=== PATIENT | male | born 1945 | race Caucasian/White ===

== ENCOUNTER → 2020-12-10 09:53 | Outpatient (BNVA) | payer OTHER, SELFPAY | PROVIDERS: PCP Emergency Medicine Emergency Medical Services; Referring Provider Emergency Medicine Emergency Medical Services; Visit Provider Urology | DX: N52.9 Male erectile dysfunction, unspecified (principal); R97.20 Elevated prostate specific antigen [PSA]; N20.1 Calculus of ureter; R39.9 Unspecified symptoms and signs involving the genitourinary system; Z12.5 Encounter for screening for malignant neoplasm of prostate; Z87.442 Personal history of urinary calculi | CPT/HCPCS: 81003; G0103 ==

== ENCOUNTER 2021-01-19 13:32 | Emergency (ER) | payer OTHER, MEDICARE, SELFPAY ==
[2021-01-19 13:40] VITALS: BP 150/85; PULSE 78; RESP 16; TEMP 36.4; O2SAT 96; BMI 26.6
--- NOTE | 2021-01-19 13:47 | ECG_ITS ---
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 Measurements Intervals [place] Rate: 78 P: 36 MS: 171 QRS: -6 QRSD: 90 T: 13 QT: 369 QTc: 422 Interpretive Statements SINUS RHYTHM NONSPECIFIC T-WAVE ABNORMALITY No previous ECG available for comparison Electronically Signed On 01-21-2021 19:17:21 CDT by Yolande Zarate M.D. [email or web address]
--- NOTE | 2021-01-19 13:47 | XRR_ITS ---
PROCEDURE INFORMATION: Exam: XR Chest Exam date and time: 01/19/2021 1:47 PM Age: 75 years old Clinical indication: Cough and dyspnea. TECHNIQUE: Imaging protocol: XR of the chest. Views: 1 view. COMPARISON: No relevant prior studies available. FINDINGS: Lungs: Low lung volumes. There are small nodular densities at the lung bases. No pulmonary consolidation. Pleural spaces: No pleural effusion.; No pneumothorax. Heart/Mediastinum: The cardiac silhouette is unremarkable. No gross evidence of pneumomediastinum. Bones/joints: No gross fracture. XR/XR chest 1V portable [id number] IMPRESSION: 1. Small nodular densities at the lung bases. Recommend CT chest to better characterize. 2. Low lung volumes.
--- NOTE | 2021-01-19 14:21 | ED_ITS ---
Documented by User: Lester Kay DO 01/21/21 06:19 HPI - Weakness General: Chief complaint: Weakness Stated complaint: GENERALIZED WEAKNESS/ UNCONTROLLED SHAKING Time Seen by Provider: 01/19/21 13:34 History of Present Illness: HPI Narrative: 75-year-old male presents emergency room with complaint of uncontrollable shaking of his arms and legs as well as feeling weak. Patient states he started taking a new medication about a month ago although he cannot identify what it is. Since then he been shaking he quit the medicine but still has the shaking. He is previously had a stroke. He is not otherwise have any focal neurologic deficits. States shaking is been intensifying recently but when I first came to see him it resolved while I was examining him began having shaking in his arms again. He is otherwise awake a lert and oriented. MD Complaint: generalized weakness Onset (ago): day(s) Duration: intermittent Location: generalized Migration: none Severity: mild Relieving factors: none Exacerbating factors: none Associated symptoms: Denies chest pain, chills, confusion, melena, decreased appetite, diaphoresis, dysuria, easy bruising, fever(s), headache(s), myalgias, nausea, rash, short of breath, syncope or vomiting Review of Systems Const: Denies: fever(s), chills or diaphoresis ENMT: Denies: throat pain, ear or mastoid pain, nasal discharge or nasal congestion Card: Denies: chest pain or syncope Resp: Denies: dyspnea, productive cough or non-productive cough GI: Denies: nausea, vomiting or melena : Denies: dysuria Skin/Breast: Denies: rash or pruritus Neuro: Denies: headache(s) or confusion Adam/Lymph: Denies: easy bruising PFS ED PFSH: Medical History Benign neoplasm of cerebral meninges Calculus of kidney Elevated prostate specific antigen (PSA) Erectile dysfunction Post traumatic stress disorder (PTSD) Pure hypercholesterolemia Unspecified osteoarthritis, unspecified site Vascular dementia without behavioral disturbance Family History (Updated 12/10/20 @ 10:21 by Vania Kruse LPN) Father , AT AGE 54 CAD (coronary artery disease) Cancer Mother , IN HER 80'S Stroke Social History Smoking and tobacco status: former smoker Alcohol intake: current Marital status: Current occupational status: retired History of recent travel: No Physical Exam Const: COMMON NORMALS: no acute distress GENERAL APPEARANCE: cooperative and comfortable ORIENTATION/CONSCIOUSNESS: Yes awake, Yes oriented to person, Yes oriented to place and Yes oriented to time HENMT: COMMON NORMALS: normocephalic, atraumatic, hearing grossly normal bilaterally, external ears normal, EAC's normal, TM's normal bilaterally, Normal nasal mucous membranes and turbinates present, moist oral mucous membranes and oropharynx normal HEAD & SCALP: normocephalic and atraumatic NOSE: Normal nasal mucous membranes and turbinates present EXTERNAL EAR: Yes external ears normal EXTERNAL AUDITORY CANAL: EAC's normal TYMPANIC MEMBRANE: TM's normal bilaterally Eye: COMMON NORMALS: Equal, round and reactive pupils present, EOMs intact bilaterally, conjunctivae normal and no scleral icterus CONJUNCTIVA: Yes conjunctivae normal PUPIL: Yes Equal, round and reactive pupils present Neck/C-Spine: COMMON NORMALS: full ROM, no lymphadenopathy, supple and no JVD Resp: COMMON NORMALS: normal respiratory effort, No retractions, No use of accessory muscles and clear to auscultation bilaterally AUSCULTATION: clear to auscultation bilaterally Cardio: COMMON NORMALS: no JVD, regular rate, regular rhythm and No murmurs present (Cardio) RATE: regular rate RHYTHM: regular rhythm GI: COMMON NORMALS: Soft to palpation and No hepatosplenomegaly present AUSCULTATION: Yes normoactive bowel sounds PALPATION: Yes Soft to palpation, No Tenderness to palpation present (GI), No Guarding due to palpation present (GI) and Yes No hepatosplenomegaly present Extremity: COMMON NORMALS: normal to inspection, capillary refill normal, no clubbing, cyanosis or edema, no calf tenderness and no pedal edema Neuro: SENSORIUM/ORIENTATION: Yes oriented to person, Yes oriented to place and Yes oriented to time Skin: COMMON NORMALS: no rashes or lesions noted GENERAL SKIN EXAM: no rashes or lesions noted Course Vital Signs: Vital signs: Vital Signs Temperature 97.5 F L 01/19/21 13:40 Pulse Rate 79 01/19/21 20:55 Respiratory Rate 15 01/19/21 20:55 Blood Pressure 145/90 01/19/21 20:55 Pulse Oximetry 96 01/19/21 20:55 MDM - Weakness MDM Narrative: Medical decision making narrative: Care turned over to at change of see his note for final diagnosis and disposition. Lab Data: Labs: Lab Results 01/19/21 01/19/21 01/19/21 Range/Units 14:10 14:40 14:40 WBC 8.8 (4.0-10.0) 10^3/ uL RBC 4.76 (4.1-5.3) 10^6/u L Hgb 13.8 (11.7-16.6) g/dL Hct 41.1 L (42.0-52.0) % MCV 86.3 (80-94) fl MCH 29.0 (28.0-34.0) pg MCHC 33.6 (30.0-36.0) g/dL RDW 14.5 (12.1-15.1) % Plt Count 335 (130-400) 10^3/c mm MPV 10.4 (7.4-10.4) fL Neut % (Auto) 60.5 % Lymph % (Auto) 27.9 % [place] % (Auto) 9.6 % Eos % (Auto) 1.4 % Baso % (Auto) 0.5 % Neut # (Auto) 5.35 (1.8-7.7) 10^3/u L Lymph # (Auto) 2.5 (0.8-4.8) 10^3/u L [place] # (Auto) 0.9 (0.2-0.9) 10^3/u L Eos # (Auto) 0.1 (0.0-0.8) 10^3/u L Baso # (Auto) 0.0 (0.0-0.1) 10^3/u L Nucleated RBC % (a uto) 0 % Nucleated RBCs # 0.0 /100WBC Sodium 143 (136-145) mmol/L Potassium 4.0 (3.5-5.1) mmol/L Chloride 105 (98-107) mmol/L Carbon Dioxide 25 (22-29) mmol/L Anion Gap 17.0 (5-19) BUN 13 (8-23) mg/dL Creatinine 1.1 (0.7-1.2) mg/dL GFR Calculation Not Reportable Glucose 88 (65-115) mg/dL Calculated Osmolal ity 296 H (285-295) mOsm/k g Calcium 8.7 (8.5-10.5) mg/dL Total Bilirubin 0.5 (0.15-1.2) mg/dL AST 23 (0-40) U/L ALT 32 (0-41) U/L Alkaline Phosphata se 108 (40-130) IU/L Creatine Kinase 124 (39-308) U/L C-Reactive Protein 3.9 (0.0-4.9) mg/L Total Protein 6.8 (6.6-8.7) g/dL Albumin 4.2 (3.5-5.2) g/dL Globulin 2.6 (1.3-4.6) g/dL Urine Color Yellow (Yellow) Urine Appearance Clear (CLEAR) Urine pH 6.5 (5-7) Ur Specific Gravit y 1.010 (1.005-1.030) Urine Protein Neg (Negative) Urine Glucose (UA) Norm (Normal) Urine Ketones Negative (Negative) Urine Blood 2+ H (Negative) Urine Nitrate Negative (Negative) Urine Bilirubin Neg (Negative) Urine Urobilinogen Norm (Negative) mg/dL Ur Leukocyte Rupal ase Negative (Negative) Urine RBC 5-10 H (0-2) /hpf Urine WBC Rare (0-5) /hpf Ur Squamous Epith Cells Rare (0-5) /hpf Amorphous Sediment Not Reportable Urine Bacteria Trace (NONE) /hpf Urine Mucus Trace /hpf Discharge Plan Discharge Patient Disposition: Home Clinical Impression: Tremor, Abnormal CT of the head, Abnormal head MRI, Hematuria Condition: Stable Prescriptions: No Action amlodipine 10 mg tablet 10 mg PO DAILY RF: 0 polyvinyl alcohol [Artificial Tears (polyvin alc)] 1.4 % drops 1 drp ophthalmic (eye) TID PRN (Reason: Dry Eyes) RF: 0 aspirin 81 mg tablet,delayed release (DR/EC) 81 mg PO DAILY RF: 0 bupropion HCl 300 mg tablet extended release 24 hr 300 mg PO QAM RF: 0 donepezil 10 mg tablet 10 mg PO DAILY RF: 0 metoprolol succinate 25 mg tablet extended release 24 hr 12.5 mg PO DAILY RF: 0 oxybutynin chloride 5 mg tablet 5 mg PO TID PRN (Reason: Pain) RF: 0 pravastatin 40 mg tablet 40 mg PO DAILY RF: 0 sildenafil 100 mg tablet 100 mg PO DAILY PRN (Reason: sexual activity) Qty: 20 RF: 12 tamsulosin 0.4 mg capsule 0.4 mg PO DAILY RF: 0 Prozac 20 mg Capsule 20 mg PO DAILY MDD SEE PHARMACY COMMENTS RF: 0 Discharge Orders: Discharge ED (Routine); Ordered 01/19/21 Ordered By: Azeem Robledo Referrals: Bam Pepe, DO [Primary Care Provider] - Discharge Diet: Usual diet Discharge Activity: Resume usual activity Patient Instructions: Hematuria - Male, Opioid Safety Activity Restrictions/Additional Instructions: Thank you for visiting the emergency department. You were seen and evaluated for abnormal muscle movements. The exact cause of this is somewhat unclear th ough may be related to your prior medication. We recommend outpatient follow-up with neurology. Additionally you were evaluated for abnormal head CT finding, per radiology recommendations they recommend a repeat MRI in 3 to 6 months to evaluate for stability of suspected meningioma. Please return to the emergency department for anything that you are concerned about and feel needs emergency department evaluation. Sign Out Sign Out Data: Patient Sign Out occurred on 01/19/21 at 19:04. Patient's care was discussed, and care was transferred from to Azeem Robledo MD. Coding Level of Care Code ED Center Human Resources Manager for Bashir Hwang NIH stroke score NIHSS Level Of Consciousness - 1a: 0 Level Of Consciousness Questions - 1b: Both Correct Level Of Consciousness Commands - 1c: Both Correct Best Gaze - 2: Normal Visual [place] - 3: No Visual Loss Facial Palsy - 4: Normal Motor Arm Right - 5: No Drift Motor Arm Left - 5: No Drift Motor Leg Right - 6: No Drift Motor Leg Left - 6: No Drift Limb Ataxia - 7: Absent Sensory - 8: Normal Best Language - 9: No Aphasia Dysarthia - 10: Normal Extinction And Inattention - 11: 0 Score Total Score: 0 Documented by User: Azeem Robledo MD 01/20/21 19:59 HPI - Weakness General: Chief complaint: Weakness Stated complaint: GENERALIZED WEAKNESS/ UNCONTROLLED SHAKING Time Seen by Provider: 01/19/21 13:34 PFSH ED PFSH: Medical History Benign neoplasm of cerebral meninges Calculus of kidney Elevated prostate specific antigen (PSA) Erectile dysfunction Post traumatic stress disorder (PTSD) Pure hypercholesterolemia Unspecified osteoarthritis, unspecified site Vascular dementia without behavioral disturbance Family History (Updated 12/10/20 @ 10:21 by Vania Kruse LPN) Father , AT AGE 54 CAD (coronary artery disease) Cancer Mother , IN HER 80'S Stroke Social History Smoking and tobacco status: former smoker Alcohol intake: current Marital status: Current occupational status: retired History of recent travel: No Course Vital Signs: Vital signs: Vital Signs Temperature 97.5 F L 01/19/21 13:40 Pulse Rate 79 01/19/21 20:55 Respiratory Rate 15 01/19/21 20:55 Blood Pressure 145/90 01/19/21 20:55 Pulse Oximetry 96 01/19/21 20:55 MDM - Weakness MDM Narrative: Medical decision making narrative: Patient care handoff received from the ED physician Dr. Kay pending completion of labs and obtaining outside records. Based on CT imaging patient requires MRI. MRI was performed without apparent complication and no evidence of acute hemorrhage was noted. The nonspecific finding was discussed with the patient and patient was offered lumbar puncture which he declined at this time after discussion of risks and benefits. Plan to have patient follow-up as outpatient. This was discussed with the patient and he was comfortable and agreeable with plan. Return precautions francia ivmodesta. All questions answered. Azeem Robledo MD Emergency Medicine Lab Data: Labs: Lab Results 01/19/21 01/19/21 01/19/21 Range/Units 14:10 14:40 14:40 WBC 8.8 (4.0-10.0) 10^3/ uL RBC 4.76 (4.1-5.3) 10^6/u L Hgb 13.8 (11.7-16.6) g/dL Hct 41.1 L (42.0-52.0) % MCV 86.3 (80-94) fl MCH 29.0 (28.0-34.0) pg MCHC 33.6 (30.0-36.0) g/dL RDW 14.5 (12.1-15.1) % Plt Count 335 (130-400) 10^3/c mm MPV 10.4 (7.4-10.4) fL Neut % (Auto) 60.5 % Lymph % (Auto) 27.9 % [place] % (Auto) 9.6 % Eos % (Auto) 1.4 % Baso % (Auto) 0.5 % Neut # (Auto) 5.35 (1.8-7.7) 10^3/u L Lymph # (Auto) 2.5 (0.8-4.8) 10^3/u L [place] # (Auto) 0.9 (0.2-0.9) 10^3/u L Eos # (Auto) 0.1 (0.0-0.8) 10^3/u L Baso # (Auto) 0.0 (0.0-0.1) 10^3/u L Nucleated RBC % (a uto) 0 % Nucleated RBCs # 0.0 /100WBC Sodium 143 (136-145) mmol/L Potassium 4.0 (3.5-5.1) mmol/L Chloride 105 (98-107) mmol/L Carbon Dioxide 25 (22-29) mmol/L Anion Gap 17.0 (5-19) BUN 13 (8-23) mg/dL Creatinine 1.1 (0.7-1.2) mg/dL GFR Calculation Not Reportable Glucose 88 (65-115) mg/dL Calculated Osmolal ity 296 H (285-295) mOsm/k g Calcium 8.7 (8.5-10.5) mg/dL Total Bilirubin 0.5 (0.15-1.2) mg/dL AST 23 (0-40) U/L ALT 32 (0-41) U/L Alkaline Phosphata se 108 (40-130) IU/L Creatine Kinase 124 (39-308) U/L C-Reactive Protein 3.9 (0.0-4.9) mg/L Total Protein 6.8 (6.6-8.7) g/dL Albumin 4.2 (3.5-5.2) g/dL Globulin 2.6 (1.3-4.6) g/dL Urine Color Yellow (Yellow) Urine Appearance Clear (CLEAR) Urine pH 6.5 (5-7) Ur Specific Gravit y 1.010 (1.005-1.030) Urine Protein Neg (Negative) Urine Glucose (UA) Norm (Normal) Urine Ketones Negative (Negative) Urine Blood 2+ H (Negative) Urine Nitrate Negative (Negative) Urine Bilirubin Neg (Negative) Urine Urobilinogen Norm (Negative) mg/dL Ur Leukocyte Rupal ase Negative (Negative) Urine RBC 5-10 H (0-2) /hpf Urine WBC Rare (0-5) /hpf Ur Squamous Epith Cells Rare (0-5) /hpf Amorphous Sediment Not Reportable Urine Bacteria Trace (NONE) /hpf Urine Mucus Trace /hpf Discharge Plan Discharge Patient Disposition: Home Clinical Impression: Tremor, Abnormal CT of the head, Abnormal head MRI, Hematuria Condition: Stable Prescriptions: No Action amlodipine 10 mg tablet 10 mg PO DAILY RF: 0 polyvinyl alcohol [Artificial Tears (polyvin alc)] 1.4 % drops 1 drp ophthalmic (eye) TID PRN (Reason: Dry Eyes) RF: 0 aspirin 81 mg tablet,delayed release (DR/EC) 81 mg PO DAILY RF: 0 bupropion HCl 300 mg tablet extended release 24 hr 300 mg PO QAM RF: 0 donepezil 10 mg tablet 10 mg PO DAILY RF: 0 metoprolol succinate 25 mg tablet extended release 24 hr 12.5 mg PO DAILY RF: 0 oxybutynin chloride 5 mg tablet 5 mg PO TID PRN (Reason: Pain) RF: 0 pravastatin 40 mg tablet 40 mg PO DAILY RF: 0 sildenafil 100 mg tablet 100 mg PO DAILY PRN (Reason: sexual activity) Qty: 20 RF: 12 tamsulosin 0.4 mg capsule 0.4 mg PO DAILY RF: 0 Prozac 20 mg Capsule 20 mg PO DAILY MDD SEE PHARMACY COMMENTS RF: 0 Discharge Orders: Discharge ED (Routine); Ordered 01/19/21 Ordered By: Azeem Robledo Referrals: Bam Pepe DO [Primary Care Provider] - Discharge Diet: Usual diet Discharge Activity: Resume usual activity Patient Instructions: Hematuria - Male, Opioid Safety Activity Restrictions/Additional Instructions: Thank you for visiting the emergency department. You were seen and evaluated for abnormal muscle movements. The exact cause of this is somewhat unclear though may be related to your prior medication. We recommend outpatient follow- up with neurology. Additionally you were evaluated for abnormal head CT finding, per radiology recommendations they recommend a repeat MRI in 3 to 6 months to evaluate for stability of suspected meningioma. Please return to the emergency department for anything that you are concerned about and feel needs emergency department evaluation. Sign Out Sign Out Data: Patient Sign Out occurred on 01/19/21 at 19:04. Patient's care was discussed, and care was transferred from to Azeem Robledo MD. Coding Level of Care Code ED Center Human Resources Manager for Bashir Hwang
--- NOTE | 2021-01-19 14:22 | CTR_ITS ---
PROCEDURE INFORMATION: Exam: CT Head Without Contrast Exam date and time: 01/19/2021 2:22 PM Age: 75 years old Clinical indication: Complains of tremors. History of CVA. TECHNIQUE: Imaging protocol: Computed tomography of the head without contrast. Radiation optimization: All CT scans at this facility use at least one of these dose optimization techniques: automated exposure control; mA and/or kV adjustment per patient size (includes targeted exams where dose is matched to clinical indication); or iterative reconstruction. COMPARISON: No relevant prior studies available. RADIATION DOSE METRICS: Total DLP (mGy-cm): 805.36 FINDINGS: Brain: There are lacunar infarcts within/adjacent to the basal ganglia, bilaterally, of indeterminate age. There is no evidence of acute large vessel infarct.; There is mild patchy subcortical and periventricular hypodensity, most commonly associated with small vessel ischemic disease of indeterminate age. The posterior fossa is grossly unremarkable; however, it is partially obscurred by beam hardening artifact. Cerebral ventricles: The ventricles are prominent, compatible with moderate parenchymal volume loss. Paranasal sinuses: The visualized paranasal sinuses are clear. Mastoid air cells: No mastoid effusion. Orbital cavity: The visualized orbits are unremarkable. Bones/joints: No acute fracture is seen. Soft tissues: There is a focal extra-axial structure in the left frontotemporal region that measures 2.4 x 0.7 x 1.4 cm. This could represent a mass or hematoma. CT/CT head wo con* [id number] IMPRESSION: 1. Focal extra-axial structure in the left frontotemporal region that could represent a mass or hematoma. Recommend MRI of the brain with and without contrast to further assess. 2. There are lacunar infarcts within/adjacent to the basal ganglia, bilaterally, of indeterminate age. These lesions will likely be better assessed on MRI. 3. [id number] senescent changes as above. Radiation Dose CTDIVOL = (mGy): DLP = 805.36 (mGy-cm)
[2021-01-19 14:52] LABS: Add Urine Microscopic? YES; Bilirubin Urine Neg (Negative); Blood Urine 2+ (Negative); Glucose Urine UA Norm (Normal); Ketones Urine Negative (Negative); Leukocyte Esterase Urine Negative (Negative); Nitrate Urine Negative (Negative); Protein Urine Neg (Negative); Urine Appearance Clear (CLEAR); Urine Color Yellow (Yellow); Urobilinogen Urine Norm (Negative); pH Urine 6.5 (5-7)
[2021-01-19 14:53] LABS: Basophils % 0.5 %; Eosinophils # 0.1 10^3/uL (0.0-0.8); Eosinophils % 1.4 %; Hematocrit 41.1 % (42.0-52.0); Hemoglobin 13.8 g/dL (11.7-16.6); Lymphocytes # 2.5 10^3/uL (0.8-4.8); Lymphocytes % 27.9 %; Mean Corpuscular HGB Conc 33.6 g/dL (30.0-36.0); Mean Corpuscular Volume 86.3 fl (80-94); Mean Platelet Volume 10.4 fL (7.4-10.4); Monocytes # 0.9 10^3/uL (0.2-0.9); Monocytes % 9.6 %; Neutrophils # 5.35 10^3/uL (1.8-7.7); Neutrophils % 60.5 %; Nucleated Red Blood Cells % 0 %; Platelet Count 335 10^3/cmm (130-400); Red Blood Count 4.76 10^6/uL (4.1-5.3); Red Cell Distribution Width 14.5 % (12.1-15.1); White Blood Count 8.8 10^3/uL (4.0-10.0)
[2021-01-19 15:16] LABS: Alanine Aminotransferase 32 U/L (0-41); Albumin Level 4.2 g/dL (3.5-5.2); Alkaline Phosphatase 108 IU/L (40-130); Aspartate Amino Transferase 23 U/L (0-40); Blood Urea Nitrogen 13 mg/dL (8-23); C Reactive Protein 3.9 mg/L (0.0-4.9); Calcium 8.7 mg/dL (8.5-10.5); Carbon Dioxide 25 mmol/L (22-29); Chloride 105 mmol/L (98-107); Globulin 2.6 g/dL (1.3-4.6); Glucose 88 mg/dL (65-115); Osmolality Calculated 296 mOsm/kg (285-295); Sodium 143 mmol/L (136-145); Total Bilirubin 0.5 mg/dL (0.15-1.2); Total Protein 6.8 g/dL (6.6-8.7)
[2021-01-19 15:17] LABS: WBC Urine RARE /hpf (0-5)
[2021-01-19 15:18] LABS: Add Urine Culture? No; Bacteria Urine TRACE /hpf; Mucus Urine TRACE /hpf; Squamous Epithelial Cell Urine RARE /hpf (0-5)
[2021-01-19 15:31] LABS: Creatine Phosphokinase 124 U/L (39-308)
[2021-01-19 18:09] VITALS: BP 154/86; PULSE 88; RESP 18; O2SAT 98
[2021-01-19] MEDS: LORazepam 2 mg/mL INJ 1 mL 1 MG IVP (19:30)
--- NOTE | 2021-01-19 19:45 | MRR_ITS ---
PROCEDURE INFORMATION: Exam: MR Head Without and With Contrast Exam date and time: 01/19/2021 7:45 PM Age: 75 years old Clinical indication: Mass versus bleed on CT brain TECHNIQUE: Imaging protocol: MR of the head without and with intravenous contrast. Contrast material: MULTIHANCE; Contrast volume: 15 ml; Contrast route: INTRAVENOUS (IV); COMPARISON: CT head wo con* [id number] 01/19/2021 3:09 PM FINDINGS: There is an enhancing dural-based lesion in the left frontotemporal region that measures 2.3 x 0.5 x 2.1 cm. This is suspected to represent a meningioma. There is diffuse, thin, smooth pachymeningeal enhancement. This can be seen with intracranial hypotension, infection or may be idiopathic. There are old lacunar infarcts within/adjacent to the basal ganglia bilaterally. There is a developmental venous anomaly in the right cerebellum. No evidence of intracranial hemorrhage. There is no evidence of acute infarct. There is mild patchy subcortical and periventricular high FLAIR signal, most commonly associated with small vessel ischemic disease of indeterminate age. The ventricles and cortical sulci are prominent, compatible with moderate parenchymal volume loss. The flow voids in the dominant [place] arteries are unremarkable. The visualized paranasal sinuses are clear. The visualized orbits are unremarkable. MR/MR head wo/w con [id number] IMPRESSION: 1. Enhancing dural-based lesion in the left frontotemporal region that is suspected to represent a meningioma. Recommend follow-up MR brain in 3-6 months to reassess. 2. Diffuse, thin, smooth pachymeningeal enhancement. This can be seen with intracranial hypotension, infection or may be idiopathic. 3. Old lacunar infarcts within/adjacent to the basal ganglia bilaterally. 4. 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 5. Eige-ir-lcwjtyyg senescent changes as above. 6. No acute intracranial hemorrhage.
[2021-01-19] MEDS: gadobenate dimeglumine 20 mL vial IV (20:46)
[2021-01-19 20:55] VITALS: BP 145/90; PULSE 79; RESP 15; O2SAT 96
== END 2021-01-19 21:42 | disposition home or self-care (01) ==
PROVIDERS: Family Medicine; Emergency Provider Emergency Medicine; PCP Emergency Medicine Emergency Medical Services
DX: R25.1 Tremor, unspecified (principal); R31.9 Hematuria, unspecified; R93.0 Abnormal findings on diagnostic imaging of skull and head, not elsewhere classified; Z79.82 Long term (current) use of aspirin; F01.50 Vascular dementia, unspecified severity, without behavioral disturbance, psychotic disturbance, mood disturbance, and anxiety; Z87.891 Personal history of nicotine dependence
CPT/HCPCS: 36415; 70450; 70553; 71045; 80053; 81001; 82550; 85025; 86140; 87040; 93005; 96374; 99284; A9577; J2060

== ENCOUNTER 2021-02-26 12:18 | Outpatient (CLI) | payer OTHER, SELFPAY ==
--- NOTE | 2021-02-26 12:30 | XR_ITS ---
WS: [id number] KUB, AP view, 02/26/2021 Clinical Data: calculus of kidney Comparison: None. Findings: No abnormal intraabdominal masses or calcifications are seen. There is no dilatated small bowel or ev idence of obstruction. There is a moderate amount of fecal material throughout the colon. There are phleboliths in the true pelvis. XR/XR KUB [id number] Impression: Negative KUB.
== END 2021-02-26 12:19 | disposition home or self-care (01) ==
LOC: RAD 12:19
PROVIDERS: PCP Emergency Medicine Emergency Medical Services; Visit Provider Urology
DX: N20.0 Calculus of kidney (principal)
CPT/HCPCS: 74018; 81003

== ENCOUNTER 2021-04-26 14:34 | Emergency (ER) | payer OTHER, MEDICARE, SELFPAY ==
[2021-04-26 14:48] VITALS: BP 175/95; PULSE 60; RESP 16; TEMP 36.9; O2SAT 100
--- NOTE | 2021-04-26 17:42 | ED_ITS ---
HPI - Male Genitourinary General: Chief complaint: Urogenital-Male Stated complaint: R FLANK PAIN Time Seen by Provider: 04/26/21 17:33 History of Present Illness: HPI Narrative: Patient with a history of right flank pain for the last 2 weeks. Was actually doubled up early this morning. Patient states he is not hurting presently. Denies any blood in his urine. Does have a history of chronic low back pain also. Has had slight decrease GFR [facility] Complaint: other (Right flank pain) Onset (ago): week(s) Duration: intermittent and improved Location: right flank Severity: mild Severity scale (1-10): 1 Quality: dull Relieving factors: none Exacerbating factors: none Associated symptoms: Reports no associated symptoms; Deny nausea or vomiting Review of Systems Const: Denies: fever(s), chills or body aches Eyes: Denies: change in vision or blurry vision ENMT: Denies: throat pain or nasal congestion Card: Denies: chest pain or dyspnea on exertion Resp: Denies: dyspnea, productive cough or non-productive cough GI: Denies: abdominal pain, nausea or vomiting : Reports: flank pain; Denies: difficulty urinating Musc: Denies: extremity pain Skin/Breast: Denies: rash Neuro: Denies: headache(s) Psych: Denies: anxiety or depression Adam/Lymph: Denies: easy bruising PFSH ED PFSH: Medical History (Updated 04/26/21 @ 22:51 by KYLAH Moy) Benign neoplasm of cerebral meninges Calculus of kidney Elevated prostate specific antigen (PSA) Erectile dysfunction Post traumatic stress disorder (PTSD) Pure hypercholesterolemia Unspecified osteoarthritis, unspecified site Vascular dementia without behavioral disturbance Family History Father , AT AGE 54 CAD (coronary artery disease) Cancer Mother , IN HER 80'S Stroke Social History Alcohol intake: current Marital status: Current occupational status: retired History of recent travel: No Physical Exam Const: COMMON NORMALS: no acute distress, average body habitus and patient oriented x3 HENMT: COMMON NORMALS: normocephalic HEAD & SCALP: normal to inspection and normocephalic FACE & SINUS: normal facial exam Eye: COMMON NORMALS: conjunctivae normal GENERAL EYE: appearance normal, both eyes and all related structures CONJUNCTIVA: Yes conjunctivae normal Neck/C-Spine: COMMON NORMALS: no JVD Chest: COMMONS NORMALS: normal inspection of the chest Resp: COMMON NORMALS: normal respiratory effort and clear to auscultation bilaterally AUSCULTATION: clear to auscultation bilaterally Cardio: COMMON NORMALS: no JVD, regular rate and regular rhythm RATE: regular rate RHYTHM: regular rhythm GI: COMMON NORMALS: Normal to inspection, nondistended, normoactive bowel sounds present Extremity: COMMON NORMALS: normal to inspection and full ROM Neuro: COMMON NORMALS: patient oriented x3 Course Vital Signs: Vital signs: Vital Signs Temperature 98.4 F 04/26/21 14:48 Pulse Rate 84 04/26/21 20:46 Respiratory Rate 16 04/26/21 14:48 Blood Pressure 159/98 04/26/21 20:46 Pulse Oximetry 97 04/26/21 20:46 MDM - Male MDM Narrative: Medical decision making narrative: Patient presents with right flank pain x2 weeks. [facility]. Patient history of chronic low back pain not sure if that is what his problem is he says. CT did not did because history of kidney stones did not reveal any obstruction. Urine shows mild hematuria with few white blood cells trace bacteria. Patient responded well to medications presented here in the ER patient encouraged follow-up with the [facility] repeat urine sample no heavy lifting over 10 pounds for next 4 weeks. Lab Data: Labs: Lab Results 04/26/21 04/26/21 04/26/21 18:35 18:35 18:35 WBC 8.5 10^3/uL 10^3/ uL (4.0-10.0) RBC 4.85 10^6/uL 10^6 /uL (4.1-5.3) Hgb 14.4 g/dL g/dL (11.7-16.6) Hct 43.8 % % (42.0-52.0) MCV 90.3 fl fl (80-94) MCH 29.7 pg pg (28.0-34.0) MCHC 32.9 g/dL g/dL (30.0-36.0) RDW 13.9 % % (12.1-15.1) Plt Count 259 10^3/cmm 10^3 /cmm (130-400) MPV 10.9 fL H fL (7.4-10.4) Neut % (Auto) 58.2 % % Lymph % (Auto) 29.4 % % [place] % (Auto) 11.0 % % Eos % (Auto) 0.8 % % Baso % (Auto) 0.4 % % Neut # (Auto) 4.93 10^3/uL 10^3 /uL (1.8-7.7) Lymph # (Auto) 2.5 10^3/uL 10^3/ uL (0.8-4.8) [place] # (Auto) 0.9 10^3/uL 10^3/ uL (0.2-0.9) Eos # (Auto) 0.1 10^3/uL 10^3/ uL (0.0-0.8) Baso # (Auto) 0.0 10^3/uL 10^3/ uL (0.0-0.1) Nucleated RBC % (a uto) 0 % % Nucleated RBCs # 0.0 /100WBC /100W BC Sodium 144 mmol/L mmol/L (136-145) Potassium 3.9 mmol/L mmol/L (3.5-5.1) Chloride 102 mmol/L mmol/L (98-107) Carbon Dioxide 26 mmol/L mmol/L (22-29) Anion Gap 19.9 H (5-19) BUN 18 mg/dL mg/dL (8-23) Creatinine 1.3 mg/dL H mg/dL (0.7-1.2) GFR Calculation Not Reportable Glucose 88 mg/dL mg/dL (65-115) Calculated Osmolal ity 299 mOsm/kg H mOs m/kg (285-295) Calcium 9.0 mg/dL mg/dL (8.5-10.5) Total Bilirubin 0.3 mg/dL mg/dL (0.15-1.2) AST 25 U/L U/L (0-40) ALT 22 U/L U/L (0-41) Alkaline Phosphata se 58 IU/L IU/L (40-130) Total Protein 7.1 g/dL g/dL (6.6-8.7) Albumin 4.5 g/dL g/dL (3.5-5.2) Globulin 2.6 g/dL g/dL (1.3-4.6) Lipase 13 U/L U/L (13-60) Urine Color Yellow (Yellow) Urine Appearance Clear (CLEAR) Urine pH 7 (5-7) Ur Specific Gravit y 1.005 (1.005-1.030) Urine Protein Neg (Negative) Urine Glucose (UA) Norm (Normal) Urine Ketones 1+ H (Negative) Urine Blood 2+ H (Negative) Urine Nitrate Negative (Negative) Urine Bilirubin Neg (Negative) Urine Urobilinogen Norm mg/dL mg/dL (Negative) Ur Leukocyte Rupal ase Negative (Negative) Urine RBC 5-10 /hpf H /hpf (0-2) Urine WBC 0-4 /hpf H /hpf (0-5) Ur Squamous Epith Cells 0-4 /hpf H /hpf (0-5) Amorphous Sediment Not Reportable Urine Bacteria Trace /hpf /hpf (NONE) Discharge Plan Discharge Patient Disposition: Home Clinical Impression: Acute UTI Back pain Qualifiers: Back pain location: low back pain Chronicity: chronic Back pain laterality: right Sciatica presence: without sciatica Qualified Code(s): M54.50 - Low back pain, unspecified Hematuria Qualifiers: Hematuria type: benign essential microscopic Qualified Code(s): R31.1 - Benign essential microscopic hematuria Condition: Stable Prescriptions: New Celebrex 100 mg capsule 100 mg PO BID Qty: 20 RF: 0 cyclobenzaprine 5 mg tablet 5 mg PO TID PRN (Reason: muscle spasm) Qty: 10 RF: 0 fosfomycin tromethamine 3 gram packet 3 g PO ONCE 1 Days Qty: 1 RF: 0 No Action amlodipine 10 mg tablet 10 mg PO DAILY RF: 0 aspirin 81 mg tablet,delayed release (DR/EC) 81 mg PO DAILY RF: 0 donepezil 10 mg tablet 10 mg PO DAILY RF: 0 metoprolol succinate 25 mg tablet extended release 24 hr 12.5 mg PO DAILY RF: 0 oxybutynin chloride 5 mg tablet 5 mg PO TID PRN (Reason: Pain) RF: 0 pravastatin 40 mg tablet 40 mg PO DAILY RF: 0 divalproex 500 mg tablet extended release 24 hr 1,000 mg PO DAILY RF: 0 Discharge Orders: Discharge ED (Routine); Ordered 04/26/21 Ordered By: Florin Matthews Referrals: Bam Pepe, [Primary Care Provider] - Discharge Diet: Usual diet Discharge Activity: Increase activity as tolerated Patient Instructions: Urinary Tract Infection in Men (ED), Back Pain (ED) Activity Restrictions/Additional Instructions: Follow-up with medical provider as directed. Take medications as prescribed. Return to the ER or your medical provider if condition worsens. Please read and understand discharge instructions. If any questions ask please. Coding Level of Care Code ED Sales Support Representative for Chg Fwd Exam Comprehensive
--- NOTE | 2021-04-26 17:42 | CTR_ITS ---
PROCEDURE INFORMATION: Exam: CT Abdomen And Pelvis Without Contrast Exam date and time: 04/26/2021 5:42 PM Age: 75 years old Clinical indication: Abdominal pain; Flank; Right; Prior surgery; Surgery type: Hernia; Patient HX: HX of colon cancer; Additional info: R flank pain, HX of stones TECHNIQUE: Imaging protocol: Computed tomography of the abdomen and pelvis without contrast. Radiation optimization: All CT scans at this facility use at least one of these dose optimization techniques: automated exposure control; mA and/or kV adjustment per patient size (includes targeted exams where dose is matched to clinical indication); or iterative reconstruction. COMPARISON: CR XR KUB [id number] 02/26/2021 12:29 PM RADIATION DOSE METRICS: Total DLP (mGy-cm): 1030.9 FINDINGS: Liver: Normal. No mass. Gallbladder and bile ducts: Normal. No calcified stones. No ductal dilation. Pancreas: Normal. No ductal dilation. Spleen: Normal. No splenomegaly. Adrenal glands: Normal. No mass. Kidneys and ureters: 4 mm non-obstructing anterior interpolar stone of the right kidney. No hydronephrosis. No ureteral stones. Mild bilateral renal cortical volume loss. Stomach and bowel: Unremarkable. No obstruction. No mucosal thickening. Appendix: Normal appendix. Intraperitoneal space: Unremarkable. No free air. No significant fluid collection. Vasculature: Unremarkable. No abdominal aortic aneurysm. Lymph nodes: Unremarkable. No enlarged lymph nodes. Urinary bladder: Bladder is decompressed. Reproductive: Unremarkable as visualized. Bones/joints: Unremarkable. No acute fracture. Soft tissues: Unremarkable. CT/CT kidney stone [id number] IMPRESSION: 1. Negative for acute abdominopelvic abnormality. 2. Nonobstructing right renal stone.
[2021-04-26 18:45] LABS: Basophils % 0.4 %; Eosinophils # 0.1 10^3/uL (0.0-0.8); Eosinophils % 0.8 %; Hematocrit 43.8 % (42.0-52.0); Hemoglobin 14.4 g/dL (11.7-16.6); Lymphocytes # 2.5 10^3/uL (0.8-4.8); Lymphocytes % 29.4 %; Mean Corpuscular HGB Conc 32.9 g/dL (30.0-36.0); Mean Corpuscular Hemoglobin 29.7 pg (28.0-34.0); Mean Corpuscular Volume 90.3 fl (80-94); Mean Platelet Volume 10.9 fL (7.4-10.4); Monocytes # 0.9 10^3/uL (0.2-0.9); Neutrophils # 4.93 10^3/uL (1.8-7.7); Neutrophils % 58.2 %; Nucleated Red Blood Cells % 0 %; Platelet Count 259 10^3/cmm (130-400); Red Blood Count 4.85 10^6/uL (4.1-5.3); Red Cell Distribution Width 13.9 % (12.1-15.1); White Blood Count 8.5 10^3/uL (4.0-10.0)
[2021-04-26 19:02] LABS: Alanine Aminotransferase 22 U/L (0-41); Albumin Level 4.5 g/dL (3.5-5.2); Alkaline Phosphatase 58 IU/L (40-130); Anion Gap 19.9 (5-19); Aspartate Amino Transferase 25 U/L (0-40); Blood Urea Nitrogen 18 mg/dL (8-23); Carbon Dioxide 26 mmol/L (22-29); Chloride 102 mmol/L (98-107); Globulin 2.6 g/dL (1.3-4.6); Glucose 88 mg/dL (65-115); Lipase 13 U/L (13-60); Osmolality Calculated 299 mOsm/kg (285-295); Potassium 3.9 mmol/L (3.5-5.1); Sodium 144 mmol/L (136-145); Total Bilirubin 0.3 mg/dL (0.15-1.2); Total Protein 7.1 g/dL (6.6-8.7)
[2021-04-26] MEDS: ketorolac 30 mg/mL INJ 15 MG IVP (19:42)
[2021-04-26] MEDS: cyclobenzaprine 10 mg Tablet 5 MG PO (19:42)
[2021-04-26] MEDS: sodium chloride 0.9% 1,000 ML 999 ML IV (19:43)
[2021-04-26 20:04] LABS: Specific Gravity, Urine 1.005 (1.005-1.030); Urine Appearance Clear (CLEAR); Urine Color Yellow (Yellow); pH Urine 7 (5-7)
[2021-04-26 20:06] LABS: Add Urine Microscopic? YES; Bilirubin Urine Neg (Negative); Blood Urine 2+ (Negative); Glucose Urine UA Norm (Normal); Ketones Urine 1+ (Negative); Leukocyte Esterase Urine Negative (Negative); Nitrate Urine Negative (Negative); Protein Urine Neg (Negative); Urobilinogen Urine Norm (Negative)
[2021-04-26 20:08] LABS: Add Urine Culture? No; Bacteria Urine TRACE /hpf; Squamous Epithelial Cell Urine 0-4 /hpf (0-5); WBC Urine 0-4 /hpf (0-5)
[2021-04-26 20:46] VITALS: BP 159/98; PULSE 84; O2SAT 97
== END 2021-04-26 20:48 | disposition home or self-care (01) ==
PROVIDERS: Emergency Medicine; Emergency Provider Nurse Practitioner Family; PCP Emergency Medicine Emergency Medical Services
DX: N39.0 Urinary tract infection, site not specified (principal); M54.50 Low back pain, unspecified; R31.1 Benign essential microscopic hematuria; Z79.82 Long term (current) use of aspirin
CPT/HCPCS: 74176; 80053; 81001; 83690; 85025; 96361; 96374; 96375; 99283; J1885; J2930; J7030

== ENCOUNTER 2021-09-26 10:08 | Outpatient (CLI) | payer OTHER, MEDICARE, SELFPAY | END 2021-09-26 10:09 | disposition home or self-care (01) | LOC: LAB 10:13 | PROVIDERS: PCP Emergency Medicine Emergency Medical Services; Visit Provider Nurse Practitioner Family | DX: R97.20 Elevated prostate specific antigen [PSA] (principal) | CPT/HCPCS: 36415; 51798; 81003; 84153; 99213 ==

== ENCOUNTER 2022-03-31 10:57 | Outpatient (CLI) | payer OTHER, MEDICARE, SELFPAY ==
--- NOTE | 2022-03-31 11:26 | XRR_ITS ---
PROCEDURE INFORMATION: Exam: XR Abdomen Exam date and time: 03/31/2022 11:29 AM Age: 76 years old Clinical indication: Condition or disease; Kidney or ureter condition; Calculus (stone) in kidney; Prior surgery; Surgery type: Colon, lithotripsy; Additional info: Calculus of kidney, kub @ [facility] 04/01/22 @ 1000 appointment to follow TECHNIQUE: Imaging protocol: Radiologic exam of the abdomen. Views: Frontal supine view of the abdomen. 1 View. COMPARISON: CT kidney stone [id number] 04/26/2021 6:07 PM FINDINGS: Gastrointestinal tract: Normal. No bowel dilation. Bones/joints: Unremarkable. XR/XR KUB [id number] IMPRESSION: No acute findings.
[2022-03-31 12:20] LABS: Prostate Specific AG Urology 3.66 ng/mL (0-4)
== END 2022-03-31 10:58 | disposition home or self-care (01) ==
LOC: LAB 11:00 → RAD 11:03
PROVIDERS: PCP Emergency Medicine Emergency Medical Services; Visit Provider Urology
DX: R97.20 Elevated prostate specific antigen [PSA] (principal); N20.0 Calculus of kidney
CPT/HCPCS: 36415; 74018; 84153

== ENCOUNTER → 2022-04-01 10:25 | Outpatient (BNVA) | payer OTHER, SELFPAY | PROVIDERS: PCP Emergency Medicine Emergency Medical Services; Visit Provider Urology | DX: N20.0 Calculus of kidney (principal); R39.9 Unspecified symptoms and signs involving the genitourinary system; N52.9 Male erectile dysfunction, unspecified; R97.20 Elevated prostate specific antigen [PSA]; Z86.73 Personal history of transient ischemic attack (TIA), and cerebral infarction without residual deficits | CPT/HCPCS: 51741; 51798; 81003; 99214 ==

== ENCOUNTER → 2022-10-09 12:38 | Outpatient (BNVA) | payer OTHER, SELFPAY | PROVIDERS: PCP Emergency Medicine Emergency Medical Services; Visit Provider Urology | DX: N20.0 Calculus of kidney (principal); R39.9 Unspecified symptoms and signs involving the genitourinary system | CPT/HCPCS: 51798; 81003; 99213 ==

== ENCOUNTER 2023-06-19 12:57 | Outpatient (CLI) | payer OTHER, SELFPAY ==
--- NOTE | 2023-06-19 13:06 | MR_ITS ---
WS: [id number] MRI BRAIN WITHOUT CONTRAST HISTORY: DIZZINESS/MENTAL STATUS CHANGE COMPARISON: 01/19/2021 TECHNIQUE: Diffusion imaging, multiplanar T1, T2 and FLAIR imaging obtained. Unable to achieve IV access. No evidence for acute infarct or hemorrhage. Alves-white matter differentiation is normal. Mild progression of the diffuse global atrophy and small vessel ischemic disease. Bilateral lacunar i nfarcts in the basal ganglia. There is a larger infarct in the RIGHT basal ganglia. There is no acute hemorrhage. Reidentified is the area of dural thickening along the LEFT lateral temporal region praful uring 2.5 x 0.6 cm. This was previously described on 01/19/2021 and thought to be a meningioma. Today' s study was performed without IV contrast. Minimal temporal lobe atrophy. Ventricles and extra-axial spaces are all prominent on the basis of atrophy. No inferior displacement of cerebellar tonsils. The sella turcica and pituitary gland are unremarkabl e. Dural venous sinuses and [place] of [place] demonstrate no abnormality on this unenhanced studies. Paranasal sinuses: Clear. Mastoid air cells: Normal. Calvarium and scalp: Intact. IMPRESSION: 1. No acute infarct or hemorrhage. 2. Severe diffuse global atrophy and small vessel ischemic disease with mild progression since the p rior study. 3. Bilateral lacunar infarcts in the basal ganglia. 4. Reidentified is the dural thickening over the LEFT temporal region. Thought to be a meningioma as described on 01/19/2021.
== END 2023-06-19 12:58 | disposition home or self-care (01) ==
PROVIDERS: PCP Emergency Medicine Emergency Medical Services; Visit Provider Emergency Medicine Emergency Medical Services
DX: R42 Dizziness and giddiness (principal); R41.82 Altered mental status, unspecified; G31.89 Other specified degenerative diseases of nervous system; I67.89 Other cerebrovascular disease; Z86.73 Personal history of transient ischemic attack (TIA), and cerebral infarction without residual deficits
CPT/HCPCS: 70551; 70553

== ENCOUNTER 2023-07-03 11:47 | Outpatient (CLI) | payer OTHER, SELFPAY ==
--- NOTE | 2023-07-03 11:54 | USCV_ITS ---
Dean Younger Age: 77 Gender: M : 1945 Exam Date: 07/03/2023 12:05 Ordering Phys: Bam Pepe DO Technologist: TAMMY Exam Location: [facility] [place] Indication: H/O STROKES Risk Factors: Previous Vascular Surgery: Right Brachial BP: / Left Brachial BP: / Right Left Velocity (cm/s) Spectral Plaque Velocity (cm/s) Spectral Plaque Syst/Diast Broadening Syst/Diast Broadening 127.80/7.20 Prox CCA 109.70/ 18.60 81.70/ 13.40 Mid CCA 124.50/ 27.20 84.20/ 14.30 Distal CCA 73.40 / 16.80 49.30/ 7.60 Prox ICA 60.30 / 15.50 38.30/ 12.60 Mid ICA 46.30 / 14.50 40.70/ 11.70 Distal ICA 62.00 / 22.70 119.00 ECA 78.00 0.60 ICA/CCA 0.80 Antegrade Vertebral Antegrade 36.30/ 9.50 cm/s 41.20/ 17.60 cm/s Tri Subclavian Tri 111.5 143.5 0 0 CONCLUSIONS Right ICA stenosis <50%. Mild atheromatous plaque right carotid bulb/ICA. Left ICA stenosis <50%. Mild atheromatous plaque left carotid bulb/ICA. Intimal thickening in the common carotid arteries and internal carotid arteries bilaterally. Normal antegrade Doppler flow noted in the right vertebral artery. Normal antegrade Doppler flow noted in the left vertebral artery. Freddy Yanez MD (Electronically Signed) Final Date: 03 July 2023 14:13 S
== END 2023-07-03 11:48 | disposition home or self-care (01) ==
LOC: RAD 11:47
PROVIDERS: PCP Emergency Medicine Emergency Medical Services; Visit Provider Emergency Medicine Emergency Medical Services
DX: Z86.73 Personal history of transient ischemic attack (TIA), and cerebral infarction without residual deficits (principal)
CPT/HCPCS: 93880